=== PATIENT | female | born 1935 | race Caucasian/White ===

== ENCOUNTER 2019-03-22 05:55 | Inpatient (IN) | payer OTHER ==
[~2019-03-22] VITALS: Ht 134.6 cm; Wt 63.5 kg
[~2019-03-22 05:55] MED LIST: COZAAR100 MG PO; HUM; PEPCID20 MG PO; PLAVIX75 MG PO; SYNTHROID50 MCG PO; ZANTAC300 MG PO
[2019-03-24] MEDS ORDERED: NEURONTIN300 MG PO (10:35)
[2019-03-24] MEDS ORDERED: CEFTRIAXONE1 GM IM (10:40)
== END 2019-03-24 14:15 | disposition home or self-care (01) | DRG 333 ==
LOC: CIR.AMB 05:55 → EDBD 08:00 → CIR.AMB 08:00 → O/R 09:59 → SURH 09:59
PROVIDERS: ADMIT Surgery
PROC: 3E0T3BZ Introduction of Anesthetic Agent into Peripheral Nerves and Plexi, Percutaneous Approach (ICD-10-PCS; 2019-03-22)
PROC: 0DTP0ZZ Resection of Rectum, Open Approach (ICD-10-PCS; principal; 2019-03-22 09:00)
DX: K62.3 Rectal prolapse (principal); K62.5 Hemorrhage of anus and rectum; N81.6 Rectocele; R15.9 Full incontinence of feces; K56.41 Fecal impaction; E11.9 Type 2 diabetes mellitus without complications; I10 Essential (primary) hypertension

== ENCOUNTER 2019-07-22 12:20 | Day surgery (SDC) | payer OTHER ==
[~2019-07-22] VITALS: Ht 157.5 cm; Wt 62.6 kg
[~2019-07-22 12:20] MED LIST changes: +CEFTRIAXONE1 GM IM; +NEURONTIN300 MG PO
[2019-07-22] MEDS ORDERED: LYRICA50 MG PO (13:04)
== END 2019-07-23 08:00 | disposition home or self-care (01) ==
LOC: ER 12:20 → CIR.AMB 17:00 → SURG 17:38 → ER 17:38 → O/R 17:38 → CIR.AMB 07-23 08:00 → EDSTATUS 07-23 10:00 → O/R 07-23 14:42 → SURG 07-23 14:42
DX: K62.4 Stenosis of anus and rectum (principal); K62.89 Other specified diseases of anus and rectum

== ENCOUNTER 2019-08-04 05:47 | Inpatient (IN) | payer OTHER ==
[~2019-08-04] VITALS: Ht 157.5 cm; Wt 60.8 kg
[~2019-08-04 05:47] MED LIST changes: +LYRICA50 MG PO
[2019-08-09] MEDS ORDERED: QUESTRAN LIGHT210 GM PO (14:13)
[2019-08-09] MEDS ORDERED: METAMUCIL POWD575 G1 PO (14:14)
== END 2019-08-09 15:05 | disposition home or self-care (01) | DRG 395 ==
LOC: ER 05:47 → SURG 09:08 → SEC-K 09:08 → SURG 11:39 → O/R 15:49 → SURG 19:01 → SURG-SUITE 19:14 → SURH 19:18 → SEC-K 19:56 → SURG 19:58
PROVIDERS: ADMIT Surgery
PROC: 0DCQ7ZZ Extirpation of Matter from Anus, Via Natural or Artificial Opening (ICD-10-PCS; principal; 2019-08-05)
PROC: 0DJD8ZZ Inspection of Lower Intestinal Tract, Via Natural or Artificial Opening Endoscopic (ICD-10-PCS; 2019-08-05)
PROC: BW21ZZZ Computerized Tomography (CT Scan) of Abdomen and Pelvis (ICD-10-PCS; 2019-08-05)
DX: K62.4 Stenosis of anus and rectum (principal); K62.3 Rectal prolapse; E11.9 Type 2 diabetes mellitus without complications; I10 Essential (primary) hypertension; K59.02 Outlet dysfunction constipation

== ENCOUNTER 2019-08-11 20:59 | Inpatient (IN) | payer OTHER ==
[~2019-08-11] VITALS: Ht 157.5 cm; Wt 60.8 kg
[~2019-08-11 20:59] MED LIST changes: +METAMUCIL POWD575 G1 PO; +QUESTRAN LIGHT210 GM PO
== END 2019-08-19 19:05 | disposition home or self-care (01) | DRG 348 ==
LOC: ER 20:59 → SURG 08-12 16:15
PROVIDERS: ADMIT Surgery
PROC: 0DBP7ZZ Excision of Rectum, Via Natural or Artificial Opening (ICD-10-PCS; 2019-08-16)
PROC: 0DJD8ZZ Inspection of Lower Intestinal Tract, Via Natural or Artificial Opening Endoscopic (ICD-10-PCS; 2019-08-16)
PROC: 0DBP7ZZ Excision of Rectum, Via Natural or Artificial Opening (ICD-10-PCS; principal; 2019-08-16 12:00)
DX: K62.4 Stenosis of anus and rectum (principal); K62.5 Hemorrhage of anus and rectum; I10 Essential (primary) hypertension; E11.9 Type 2 diabetes mellitus without complications; K62.89 Other specified diseases of anus and rectum

== ENCOUNTER 2019-12-01 06:40 | Day surgery (SDC) | payer OTHER ==
[2019-12-01] MEDS ORDERED: KEFLEX500 MG PO (12:57)
[2019-12-01] MEDS ORDERED: ULTRACET PO (12:59)
[2019-12-01] MEDS ORDERED: QUESTRAN LIGHT210 GM PO (13:00)
== END 2019-12-01 15:15 | disposition home or self-care (01) ==
LOC: CIR.AMB 06:40 → EDBD 10:15 → CIR.AMB 15:15
DX: R15.9 Full incontinence of feces (principal)
CPT/HCPCS: 64581; 95972; C1897

== ENCOUNTER 2019-12-15 06:00 | Day surgery (SDC) | payer OTHER ==
[~2019-12-15 06:00] MED LIST changes: +KEFLEX500 MG PO; +ULTRACET PO
== END 2019-12-15 11:50 | disposition home or self-care (01) ==
LOC: CIR.AMB 06:00
DX: R15.9 Full incontinence of feces (principal)
CPT/HCPCS: 64590; C1767